=== PATIENT | male | born 1960 | race Caucasian/White ===

== ENCOUNTER 2018-02-01 17:36 | Emergency (ER) | payer OTHER ==
[~2018-02-01] VITALS: Ht 177.8 cm; Wt 85.0 kg
[~2018-02-01 17:36] MED LIST: ASPI1TAB69 PO; CYCL5TAB PO; GABA100C4 PO; IPRA17I INH; LISI40TA PO; SIMV20TA PO
[2018-02-01 17:46] VITALS: BP 166/92; PULSE 92; RESP 24; TEMP 97.9; O2SAT 97
--- NOTE | 2018-02-01 18:01 | PD ---
HPI Chief Complaint: Psychiatric Symptoms Time Seen by Provider: 17:37 Travel History International Travel<30 days: No Contact w/Intl Traveler<30days: No Traveled to known affect area: No History of Present Illness HPI 58-year-old male presents the ED under Newell act for psychiatric evaluation. According to the Newell act paperwork the patient made [facility] statement [facility] and to a clinic worker over the phone. He stated that he would "kiss a freight train." On presentation the patient admits to making the statement. However he denies suicidal or homicidal ideation. He states that he made the statement out of frustration. Patient states that he has chronic back pain is been unable to procure any opioid pain medications. States that he is currently taking a prednisone Dosepak and has had some improvement of his chronic symptoms. He denies other somatic complaints. He states that he is resorted to using drugs off the street. He states that he smoked crack 2 nights ago. He endorses occasional marijuana use. He denies other illicit drug use. States that he drinks alcohol daily, last drink after lunch today. He denies history of withdrawal seizure. PFSH Past Medical History Arthritis: Yes Autoimmune Disease: No Anxiety: Yes Depression: Yes Cancer: No Cardiovascular Problems: Yes High Cholesterol: Yes Chest Pain: Yes COPD: Yes Cerebrovascular Accident: No (TIA, CVA) Diminished Hearing: No Endocrine: No Genitourinary: No Headaches: Yes Hypertension: Yes Immune Disorder: No Musculoskeletal: Yes (BONE SPURS ) Neurologic: Yes Psychiatric: Yes Reproductive: No Respiratory: Yes Migraines: Yes Past Surgical History Oral Surgery: Yes (TONSILLECTOMY AT AGE 3) Tonsillectomy: Yes Other Surgery: No Social History Alcohol Use: Yes Tobacco Use: Yes Substance Use: Yes (WEED) Allergies-Medications (Allergen,Severity, Reaction): Coded Allergies: No Known Allergies (Verified , 07/15/16) Reported Meds & Prescriptions Reported Meds & Active Scripts Active Reported Gabapentin 100 Mg Cap Mg PO BID Simvastatin 20 Mg Tab 20 Mg PO HS Lisinopril 40 Mg Tab 40 Mg PO DAILY Flexeril (Cyclobenzaprine HCl) 5 Mg Tab 5 Mg PO TID Aspirin 81 Mg Tabdr 81 Mg PO DAILY Atrovent HFA 12.9 GM Inh (Ipratropium [place]) 17 Mcg/Act Aer 2 Puff INH QID Review of Systems Except as stated in HPI: all other systems reviewed are Neg Physical Exam Narrative GENERAL: Well-nourished, well-developed white male no acute distress. PSYCH: Anxious, cooperative. SKIN: Focused skin assessment warm/dry. HEAD: Normocephalic. EYES: No scleral icterus. No injection or drainage. NECK: Supple, trachea midline. No JVD or lymphadenopathy. CARDIOVASCULAR: Regular rate and rhythm without murmurs, gallops, or rubs. RESPIRATORY: Breath sounds clear and equal bilaterally. No accessory muscle use. GASTROINTESTINAL: Abdomen soft, non-tender, nondistended. Active bowel sounds. MUSCULOSKELETAL: No cyanosis, or edema. Walks with a normal gait. BACK: Nontender without obvious deformity. No CVA tenderness. Data Data Last Documented VS Vital Signs Date Time Temp Pulse Resp B/P (MAP) Pulse Ox O2 Delivery O2 Flow Rate FiO2 02/01/18 18:28 98.6 90 18 152/90 (110) 96 Room Air Orders Orders Complete Blood Count With Diff (02/01/18 17:38) Comprehensive Metabolic Panel (02/01/18 17:38) Thyroid Stimulating Hormone (02/01/18 17:38) Psych Screen (02/01/18 17:38) Drug Screen, Random Urine (02/01/18 17:38) Alcohol (Ethanol) (02/01/18 17:38) Labs Laboratory Tests Test 02/01/18 18:05 02/01/18 18:40 White Blood Count 17.5 TH/MM3 Red Blood Count 5.04 MIL/MM3 Hemoglobin 15.8 GM/DL Hematocrit 47.1 % Mean Corpuscular Volume 93.6 FL Mean Corpuscular Hemoglobin 31.4 PG Mean Corpuscular Hemoglobin Concent 33.6 % Red Cell Distribution Width 13.5 % Platelet Count 246 TH/MM3 Mean Platelet Volume 8.9 FL Neutrophils (%) (Auto) 73.8 % Lymphocytes (%) (Auto) 15.5 % Monocytes (%) (Auto) 9.6 % Eosinophils (%) (Auto) 0.5 % Basophils (%) (Auto) 0.6 % Neutrophils # (Auto) 12.9 TH/MM3 Lymphocytes # (Auto) 2.7 TH/MM3 Monocytes # (Auto) 1.7 TH/MM3 Eosinophils # (Auto) 0.1 TH/MM3 Basophils # (Auto) 0.1 TH/MM3 CBC Comment DIFF FINAL Differential Comment Blood Urea Nitrogen 16 MG/DL Creatinine 0.85 MG/DL Random Glucose 103 MG/DL Albumin 4.3 GM/DL Calcium Level 9.5 MG/DL Aspartate Amino Transf (AST/SGOT) 16 U/L Alanine Aminotransferase (ALT/SGPT) 39 U/L Sodium Level 137 MEQ/L Potassium Level 4.3 MEQ/L Chloride Level 105 MEQ/L Carbon Dioxide Level 22.0 MEQ/L Anion Gap 10 MEQ/L Estimat Glomerular Filtration Rate 92 ML/MIN MDM Medical Decision Making Medical Screen Exam Complete: Yes Emergency Medical Condition: Yes Differential Diagnosis Adjustment disorder versus anxiety versus bipolar versus depression versus dementia versus electrolyte disorder versus malingering versus mood disorder versus ODD versus psychosis versus PTSD versus schizophrenia versus schizoaffective disorder versus substance-induced mood disorder versus other Narrative Course 58-year-old male brought into the ED under Newell act for psychiatric evaluation after making suicidal statement to some other care providers today. On evaluation he states that he is in chronic pain but he denies suicidal ideation. He has no new somatic complaints. Vitals reviewed. Physical exam is unremarkable.Leukocytosis noted on CBC. Patient is currently taking a Medrol Dosepak. CMP with no concerning abnormality. Tox screen and alcohol pending. Patient's medically clear for psychiatric evaluation. Mariya Young Feb 01, 2018 18:01
[2018-02-01 18:28] VITALS: BP 152/90; PULSE 90; RESP 18; TEMP 98.6; O2SAT 96
[2018-02-01 18:28] LABS: AUTOMATED NEUTROPHIL # 12.9 TH/MM3 (1.8-7.7); BASOPHIL # 0.1 TH/MM3 (0-0.2); BASOPHIL % 0.6 % (0.0-2.0); EOSINOPHIL # 0.1 TH/MM3 (0-0.4); EOSINOPHIL % 0.5 % (0.0-4.0); HEMATOCRIT 47.1 % (39.0-51.0); HEMOGLOBIN 15.8 GM/DL (13.0-17.0); LYMPH % 15.5 % (9.0-44.0); LYMPHOCYTE # 2.7 TH/MM3 (1.0-4.8); MEAN CELL VOLUME 93.6 FL (80.0-100.0); MEAN CORPUSCULAR HEMOGLOBIN 31.4 PG (27.0-34.0); MEAN CORPUSCULAR HGB CONC 33.6 % (32.0-36.0); MEAN PLATELET VOLUME 8.9 FL (7.0-11.0); MONO % 9.6 % (0.0-8.0); MONOCYTE # 1.7 TH/MM3 (0-0.9); NEUT % 73.8 % (16.0-70.0); PLATELET COUNT 246 TH/MM3 (150-450); RED BLOOD COUNT 5.04 MIL/MM3 (4.50-5.90); RED CELL DISTRIBUTION WIDTH 13.5 % (11.6-17.2); WHITE BLOOD COUNT 17.5 TH/MM3 (4.0-11.0)
[2018-02-01 18:41] LABS: ALBUMIN 4.3 GM/DL (3.4-5.0); AST (GOT) 16 U/L (15-37); BLOOD UREA NITROGEN 16 MG/DL (7-18); CALCIUM 9.5 MG/DL (8.5-10.1); CHLORIDE 105 MEQ/L (98-107); CREATININE 0.85 MG/DL (0.60-1.30); GLOMERULAR FILTRATION RATE 92 ML/MIN (>89); GLUCOSE,RANDOM 103 MG/DL (74-106); SODIUM (NA) 137 MEQ/L (136-145)
[2018-02-01 18:43] LABS: ALT (GPT) 39 U/L (12-78)
[2018-02-01 18:52] LABS: ALKALINE PHOSPHATASE 82 U/L (45-117); TOTAL BILIRUBIN ADULT 0.3 MG/DL (0.2-1.0); TOTAL PROTEIN 7.9 GM/DL (6.4-8.2)
[2018-02-01] MEDS ORDERED: LORazepam 2 MG/ML VIAL IV PUSH PRN ×4 (19:00)
[2018-02-01] MEDS ORDERED: LORazepam 1 MG TAB PO PRN (19:00)
[2018-02-01] MEDS ORDERED: ACETAMINOPHEN/HYDROcodone 325 MG/5 MG TAB PO ONE (19:00)
[2018-02-01] MEDS ORDERED: LORazepam 2 MG TAB PO PRN (19:00)
[2018-02-01 21:55] VITALS: BP 116/69; PULSE 72; RESP 18; O2SAT 96
[2018-02-02 06:27] VITALS: BP 140/80; PULSE 73; RESP 18; O2SAT 96
[2018-02-02 10:38] VITALS: BP 155/84; PULSE 77; RESP 20; O2SAT 100
--- NOTE | 2018-02-02 10:59 | PD ---
Physical Exam Date Seen by Provider: Feb 02, 2018 Time Seen by Provider: 10:58 Data Data Last Documented VS Vital Signs Date Time Temp Pulse Resp B/P (MAP) Pulse Ox O2 Delivery O2 Flow Rate FiO2 02/02/18 10:38 77 20 155/84 (107) 100 Room Air 02/01/18 18:28 98.6 Orders Orders Complete Blood Count With Diff (02/01/18 17:38) Comprehensive Metabolic Panel (02/01/18 17:38) Thyroid Stimulating Hormone (02/01/18 17:38) Psych Screen (02/01/18 17:38) Drug Screen, Random Urine (02/01/18 17:38) Alcohol (Ethanol) (02/01/18 17:38) Acetamin-Hydrocod 325-5 Mg (Bryant 5-325 (02/01/18 19:00) Alcohol Withdrawal Asmt-Ciwa ONCE (02/01/18 18:54) Lorazepam (Ativan) (02/01/18 19:00) Lorazepam Inj (Ativan Inj) (02/01/18 19:00) Lorazepam (Ativan) (02/01/18 19:00) Lorazepam Inj (Ativan Inj) (02/01/18 19:00) Lorazepam Inj (Ativan Inj) (02/01/18 19:00) Lorazepam Inj (Ativan Inj) (02/01/18 19:00) Diet Regular Basic (02/02/18 Breakfast) Ed Discharge Order (02/02/18 11:01) Labs Laboratory Tests Test 02/01/18 18:05 02/01/18 18:40 White Blood Count 17.5 TH/MM3 Red Blood Count 5.04 MIL/MM3 Hemoglobin 15.8 GM/DL Hematocrit 47.1 % Mean Corpuscular Volume 93.6 FL Mean Corpuscular Hemoglobin 31.4 PG Mean Corpuscular Hemoglobin Concent 33.6 % Red Cell Distribution Width 13.5 % Platelet Count 246 TH/MM3 Mean Platelet Volume 8.9 FL Neutrophils (%) (Auto) 73.8 % Lymphocytes (%) (Auto) 15.5 % Monocytes (%) (Auto) 9.6 % Eosinophils (%) (Auto) 0.5 % Basophils (%) (Auto) 0.6 % Neutrophils # (Auto) 12.9 TH/MM3 Lymphocytes # (Auto) 2.7 TH/MM3 Monocytes # (Auto) 1.7 TH/MM3 Eosinophils # (Auto) 0.1 TH/MM3 Basophils # (Auto) 0.1 TH/MM3 CBC Comment DIFF FINAL Differential Comment Blood Urea Nitrogen 16 MG/DL Creatinine 0.85 MG/DL Random Glucose 103 MG/DL Total Protein 7.9 GM/DL Albumin 4.3 GM/DL Calcium Level 9.5 MG/DL Alkaline Phosphatase 82 U/L Aspartate Amino Transf (AST/SGOT) 16 U/L Alanine Aminotransferase (ALT/SGPT) 39 U/L Total Bilirubin 0.3 MG/DL Sodium Level 137 MEQ/L Potassium Level 4.3 MEQ/L Chloride Level 105 MEQ/L Carbon Dioxide Level 22.0 MEQ/L Anion Gap 10 MEQ/L Estimat Glomerular Filtration Rate 92 ML/MIN Thyroid Stimulating Hormone 3rd Gen 0.362 uIU/ML Ethyl Alcohol Level LESS THAN 3 MG/DL Urine Opiates Screen NEG Urine Barbiturates Screen NEG Urine Amphetamines Screen NEG Urine Benzodiazepines Screen NEG Urine Cocaine Screen POS Urine Cannabinoids Screen NEG MDM Supervised Visit with [facility]: No Narrative Course 58-year-old male presented to the ED under [place] act for psychiatric evaluation. He was initially evaluated by myself and medically cleared. He was then evaluated by Dr. Pak, psychiatrist. Newell act was lifted. Patient is diagnosed with adjustment disorder with depressed mood. Plan is for the patient to follow-up with outpatient psychiatric resources. The patient is stable and discharged home. Diagnosis Primary Impression: Adjustment disorder with depressed mood Referrals: [facility] Additional Instruction: Follow-up with outpatient psychiatric resources as discussed. Return to the ED for any urgent or emergent medical condition. Disposition: 01 DISCHARGE HOME Condition: Stable Mariya Young Feb 02, 2018 10:59
--- NOTE | 2018-02-02 15:50 | PD.PSY.CON ---
Provisional Diagnosis Admission Date [facility] I. Adjustment disorder with depressed mood, opiate dependence History of Present Illness Service Psychiatry Consult Requested By ER Reason for Consult Suicidal statement Primary Care Physician Unknown HPI Patient was seen this morning at 9 AM. The patient is a 58-year-old man, domiciled in [place] with his girlfriend, unemployed, , with psychiatric history of depression and anxiety, opiate dependence, no previous psychiatric hospitalizations, no suicide attempts, medical history of Lyme disease, who presents the ED under Newell act for psychiatric evaluation. According to the Newell act paperwork the patient made suicidal statement to work or at the [place] and to a clinic worker over the phone. He stated that he would "kiss a [employer] train." On presentation the patient admits to making the statement. However he denies suicidal or homicidal ideation. He says that he was just upset. he states that he made the statement out of frustration. Patient states that he has chronic back pain is been unable to procure any opioid pain medications. States that he is currently taking a prednisone Dosepak and has had some improvement of his chronic symptoms. He denies other somatic complaints. He states that he is resorted to using drugs off the street. He states that he smoked crack 2 nights ago. He endorses occasional marijuana use. He denies other illicit drug use. States that he drinks alcohol daily, last drink after lunch today. He denies history of withdrawal seizure. Review of Systems Constitutional: DENIES: Diaphoretic episodes, Fatigue, Fever, Weight gain, Weight loss, Chills, Dizziness, Change in appetite, Night Sweats Endocrine: DENIES: Heat/cold intolerance, Polydipsia, Polyuria, Polyphagia Eyes: DENIES: Blurred vision, Diplopia, Eye inflammation, Eye pain, Vision loss , Photosensitivity, Double Vision Ears, nose, mouth, throat: DENIES: Tinnitus, Hearing loss, Vertigo, Nasal discharge, Oral lesions, Throat pain, Hoarseness, Ear Pain, Running Nose, Epistaxis, Sinus Pain, Toothache, Odynophagia Respiratory: DENIES: Apneas, Cough, Snoring, Wheezing, Hemoptysis, Sputum production, Shortness of breath Cardiovascular: DENIES: Chest pain, Palpitations, Syncope, Dyspnea on Exertion , PND, Lower Extremity Edema, Orthopnea, Claudication Gastrointestinal: DENIES: Abdominal pain, Black stools, Bloody stools, Constipation, Diarrhea, Nausea, Vomiting, Difficulty Swallowing, Anorexia Genitourinary: DENIES: Sexual dysfunction, Urinary frequency, Urinary incontinence, Urgency, Hematuria, Dysuria, Nocturia, Penile Discharge, Testicular Pain, Testicular Swelling Integumentary: DENIES: Abnormal pigmentation, Nail changes, Pruritus, Rash Hematologic/lymphatic: DENIES: Bruising, Lymphadenopathy Immunologic/allergic: DENIES: Eczema, Urticaria Neurologic: DENIES: Abnormal gait, Headache, Localized weakness, Paresthesias, Seizures, Speech Problems, Tremor, Poor Balance Past Family Social History Coded Allergies: No Known Allergies (Verified , 07/15/16) Reported Medications Gabapentin (Gabapentin) 100 Mg Cap, MG PO BID, #60 CAP 0 Refills 07/14/16 Lisinopril (Lisinopril) 40 Mg Tab, 40 MG PO DAILY for Blood Pressure Management , #30 TAB 0 Refills 07/14/16 Cyclobenzaprine (Flexeril) 5 Mg Tab, 5 MG PO TID for Muscle Spasm, #90 TAB 0 Refills 07/14/16 Discontinued Reported Medications Simvastatin (Simvastatin) 20 Mg Tab, 20 MG PO HS for Cholesterol Management, # 30 TAB 0 Refills 07/14/16 Aspirin (Aspirin) 81 Mg Tabdr, 81 MG PO DAILY, TAB 07/14/16 Ipratropium HFA 12.9 GM Inh (Atrovent HFA 12.9 GM Inh) 17 Mcg/Act Aer, 2 PUFF INH QID, #1 INHALER 0 Refills 07/14/16 Family Psych History No family psychiatric history Social History Patient was born and raised in [place], he is a , domiciled with his girlfriend in [facility] Physical Exam Vital Signs Vital Signs Date Time Temp Pulse Resp B/P (MAP) Pulse Ox O2 Delivery O2 Flow Rate FiO2 02/02/18 11:27 02/02/18 10:38 77 20 100 Room Air 02/01/18 18:28 98.6 Lab Results Test 02/01/18 18:05 02/01/18 18:40 White Blood Count 17.5 TH/MM3 Red Blood Count 5.04 MIL/MM3 Hemoglobin 15.8 GM/DL Hematocrit 47.1 % Mean Corpuscular Volume 93.6 FL Mean Corpuscular Hemoglobin 31.4 PG Mean Corpuscular Hemoglobin Concent 33.6 % Red Cell Distribution Width 13.5 % Platelet Count 246 TH/MM3 Mean Platelet Volume 8.9 FL Neutrophils (%) (Auto) 73.8 % Lymphocytes (%) (Auto) 15.5 % Monocytes (%) (Auto) 9.6 % Eosinophils (%) (Auto) 0.5 % Basophils (%) (Auto) 0.6 % Neutrophils # (Auto) 12.9 TH/MM3 Lymphocytes # (Auto) 2.7 TH/MM3 Monocytes # (Auto) 1.7 TH/MM3 Eosinophils # (Auto) 0.1 TH/MM3 Basophils # (Auto) 0.1 TH/MM3 CBC Comment DIFF FINAL Differential Comment Blood Urea Nitrogen 16 MG/DL Creatinine 0.85 MG/DL Random Glucose 103 MG/DL Total Protein 7.9 GM/DL Albumin 4.3 GM/DL Calcium Level 9.5 MG/DL Alkaline Phosphatase 82 U/L Aspartate Amino Transf (AST/SGOT) 16 U/L Alanine Aminotransferase (ALT/SGPT) 39 U/L Total Bilirubin 0.3 MG/DL Sodium Level 137 MEQ/L Potassium Level 4.3 MEQ/L Chloride Level 105 MEQ/L Carbon Dioxide Level 22.0 MEQ/L Anion Gap 10 MEQ/L Estimat Glomerular Filtration Rate 92 ML/MIN Thyroid Stimulating Hormone 3rd Gen 0.362 uIU/ML Ethyl Alcohol Level LESS THAN 3 MG/DL Urine Opiates Screen NEG Urine Barbiturates Screen NEG Urine Amphetamines Screen NEG Urine Benzodiazepines Screen NEG Urine Cocaine Screen POS Urine Cannabinoids Screen NEG Mental Status Examination Appearance: Appropriate Consciousness: Alert Orientation: x4 Motor Activity: Normal gait Speech: Unremarkable Language: Adequate Fund of Knowledge: Adequate Attention and Concentration: Adequate Memory: Unremarkable Mood: Appropriate Affect: Appropriate Thought Process & Associations: Intact Thought Content: Appropriate Hallucination Type: None Delusion Type: None Suicidal Ideation: No Suicidal Plan: No Suicidal Intention: No Homicidal Ideation: No Homicidal Plan: No Homicidal Intention: No Insight: Adequate Judgment: Adequate Assessment & Plan Problem List: (1) Adjustment disorder with depressed mood ICD Codes: F43.21 - Adjustment disorder with depressed mood Status: Acute Assessment & Plan: The patient denies symptoms of depression, denies anxiety, denies iris and psychosis. The patient denies suicidal enemas ideation. He denies visual and auditory hallucinations. The patient is quite focusing on medications for pain, complaining of chronic pain all over his body. The patient is quite perseverative about the real intention of recent suicidal statement, he says that he was just frustrated because there refusing to [facility]. Patient does not meet criteria for involuntary psychiatric admission. Brief supportive psychotherapy provided. Newell act will be lifted. Assessment & Plan Estimated LOS: days Xavi Pak MD Feb 02, 2018 15:50
== END 2018-02-02 11:38 | disposition home or self-care (01) ==
LOC: NEPJ 17:36
DX: F43.21 Adjustment disorder with depressed mood (principal); F14.90 Cocaine use, unspecified, uncomplicated; F12.90 Cannabis use, unspecified, uncomplicated; G89.29 Other chronic pain; M54.9 Dorsalgia, unspecified; M19.90 Unspecified osteoarthritis, unspecified site; F41.8 Other specified anxiety disorders; J44.9 Chronic obstructive pulmonary disease, unspecified; I10 Essential (primary) hypertension
CPT/HCPCS: 80053; 80307; 84443; 85025; 99284